=== PATIENT | male | born 1985 | race Hispanic/Latino ===

== ENCOUNTER 2017-10-30 19:23 | Emergency (ER) | payer BC ==
[2017-10-30 20:44] VITALS: BP 116/73; PULSE 98; RESP 18; TEMP 98.2; O2SAT 100
[2017-10-30] MEDS ORDERED: Sodium Chloride 0.9% 1,000 ML IV STA (21:30)
--- NOTE | 2017-10-30 22:04 | ED PDOC ---
HPI: Abdomen Time Seen by Provider: 10/30/17 21:19 Chief Complaint (Nursing): Abdominal Pain Chief Complaint (Provider): Vomitng, Diarrhea, and Abdominal Pain History Per: Patient History/Exam Limitations: no limitations Onset/Duration Of Symptoms: Hrs (8 hours ago) Current Symptoms Are (Timing): Still Present Location Of Pain/Discomfort: Periumbilical Additional Complaint(s): 32 y.o male presents to the ED complaining of 2 episodes of vomiting, 4 episodes of non-bloody, watery diarrhea, and periumbilical abdominal pain, onset of 8 hours ago. He believes that the pain, vomiting, and diarrhea begain promptly after he had lunch with chicken topped with some type of cream and he said it tasted funny, but ate it anyway. 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 Of note, he has not taken antibiotics yet. Past Medical History Reviewed: Historical Data, Nursing Documentation, Vital Signs Vital Signs: Last Vital Signs Temp 98.2 F 10/30/17 20:41 Pulse 98 H 10/30/17 20:41 Resp 18 10/30/17 20:41 BP 116/73 10/30/17 20:41 Pulse Ox 100 10/31/17 01:27 - Medical History PMH: No Chronic Diseases - Surgical History Surgical History: Appendectomy - Family History Family History: States: Unknown Family Hx - Social History Current smoker - smoking cessation education provided: No Ex-Smoker (has not smoked in the last 12 months): No Alcohol: None Drugs: Denies - Home Medications Home Medications: Ambulatory Orders Medication Instructions Recorded Ondansetron ODT [Zofran ODT] 4 mg PO Q8 PRN #12 odt 10/31/17 - Allergies Allergies/Adverse Reactions: Allergies Allergy/AdvReac Type Severity Reaction Status Date / Time No Known Allergies Allergy Verified 10/30/17 20:41 Review of Systems ROS Statement: Except As Marked, All Systems Reviewed And Found Negative Gastrointestinal: Positive for: Vomiting (2 episodes), Abdominal Pain ( periumbilical, cramping pain), Diarrhea (4 episodes non-bloody and watery) Physical Exam - Reviewed Nursing Documentation Reviewed: Yes Vital Signs Reviewed: Yes - Physical Exam Appears: Positive for: Well, Non-toxic, No Acute Distress Head Exam: Positive for: ATRAUMATIC, NORMAL INSPECTION, NORMOCEPHALIC Skin: Positive for: Normal Color, Warm, DRY Eye Exam: Positive for: EOMI, Normal appearance, PERRL ENT: Positive for: Normal ENT Inspection Neck: Positive for: Normal, Painless ROM Cardiovascular/Chest: Positive for: Regular Rate, Rhythm. Negative for: Murmur Respiratory: Positive for: Normal Breath Sounds. Negative for: Respiratory Distress Gastrointestinal/Abdominal: Positive for: Normal Exam, Bowel Sounds, Soft Back: Positive for: Normal Inspection Extremity: Positive for: Normal ROM. Negative for: Pedal Edema, Deformity Neurologic/Psych: Positive for: Alert, Oriented. Negative for: Motor/Sensory Deficits - Laboratory Results Result Diagrams: 10/30/17 22:20 10/30/17 22:20 - ECG O2 Sat by Pulse Oximetry: 100 (RA) Pulse Ox Interpretation: Normal Medical Decision Making Medical Decision Making: Time: --21:30 Impression: --Vomiting and Diarrhea Differential: -- including but not limited to acute gastroenteritis viral/bacterial, food poisoning, Plan: --Labs --Lipase --Benyl 10mg PO --Toradol --IV fluids --Zofran --IV Insertion 1:25 Labs reviewed, no clinically significant abnormalities. Patient denies pain and is tolerating PO. Patient given Rx for Zofran and advised to follow up with PMD , is stable for discharge home. Scribe Attestation: Documented by Faisal Valentine and Vesna Baez acting as scribes for Nelida Deng MD. Provider Attestation: All medical record entries made by the Scribe were at my direction and personally dictated by me. I have reviewed the chart and agree that the record accurately reflects my personal performance of the history, physical exam, medical decision making, and the department course for this patient. I have also personally directed, reviewed, and agree with the discharge instructions and disposition. Disposition - Clinical Impression Clinical Impression: Vomiting and diarrhea - Patient ED Disposition Is Patient to be Admitted: No Doctor Will See Patient In The: Office Counseled Patient/Family Regarding: Studies Performed, Diagnosis, Need For Followup - Disposition Referrals: [facility] [place] [Outside] Disposition: Routine/Home Disposition Time: 01:26 Condition: GOOD Additional Instructions: Take your medications as instructed. Drink plenty of fluids. Follow up with your PCP in 2-3 days. Prescriptions: Ondansetron ODT [Zofran ODT] 4 mg PO Q8 PRN #12 odt PRN Reason: Nausea/Vomiting Instructions: Gastroenteritis (ED)
[2017-10-30 22:27] LABS: BASO % 0.1 % (0.0-2.0); EOS % 0.1 % (0.0-4.0); HEMOGLOBIN 16.5 g/dL (12.0-18.0); LYMPH # 0.2 K/uL (1.0-4.3); LYMPH % 2.4 % (20.0-40.0); MEAN CELL VOLUME 92.2 fl (80.0-94.0); MEAN CORPUSCULAR HEMOGLOBIN 32.4 pg (27.0-31.0); MEAN CORPUSCULAR HGB CONC 35.2 g/dL (33.0-37.0); MEAN PLATELET VOLUME 9.4 fl (7.2-11.7); MONO # 0.6 K/uL (0.0-0.8); MONO % 7.3 % (0.0-10.0); NEUT # 6.9 K/uL (1.8-7.0); NEUT % 90.1 % (50.0-75.0); NRBC % 0.5 % (0.0-0.0); PLATELET COUNT 147 K/uL (130-400); RBC 5.09 Mil/uL (4.40-5.90); RED CELL DISTRIBUTION WIDTH 12.7 % (11.5-14.5); WHITE BLOOD COUNT 7.6 K/uL (4.8-10.8)
[2017-10-30 22:35] LABS: ALB/GLOB RATIO 1.4 (1.0-2.1); ALBUMIN 4.4 g/dL (3.5-5.0); ALT/SGPT 39 U/L (21-72); AST/SGOT 28 U/L (17-59); BLOOD UREA NITROGEN 13 mg/dl (9-20); CALCIUM 9.2 mg/dL (8.4-10.2); GFR AFRICAN-AMERICAN > 60; GFR NON-AFRICAN AMERICAN > 60; LIPASE 57 U/L (23-300)
[2017-10-30 22:50] LABS: BANDS 5 % (0-2); EOSINOPHIL 1 % (0-7); LYMPHOCYTE 4 % (20-50); MONOCYTE 8 % (0-10); NEUTROPHIL 82 % (42-75); PLATELET ESTIMATE NORMAL (NORMAL); TOTAL CELLS COUNTED 100
[2017-10-30 22:51] LABS: HYPOCHROMIC SLIGHT; LARGE PLATELETS PRESENT
== END 2017-10-31 01:36 | disposition home or self-care (01) ==
LOC: H.ER 19:23
DX: K52.9 Noninfective gastroenteritis and colitis, unspecified (principal)
CPT/HCPCS: 80053; 83690; 85025; 96361; 96374; 96375; 99282; J1885; J2405; J7040